=== PATIENT | female | born 1930 | race Caucasian/White ===

== ENCOUNTER 2021-05-03 07:43 | Outpatient (CLI) | payer MEDICARE | END 2021-05-03 07:44 | disposition home or self-care (01) | LOC: CSHCT 07:43 | PROVIDERS: ATTEND Internal Medicine Cardiovascular Disease | DX: I48.20 Chronic atrial fibrillation, unspecified (principal); Z95.818 Presence of other cardiac implants and grafts | CPT/HCPCS: 71275; 82565 ==